=== PATIENT | female | born 1970 | race Caucasian/White ===

== ENCOUNTER 2018-01-05 10:56 | Emergency (ER) | payer BC ==
[2018-01-05 11:14] VITALS: BP 106/64
--- NOTE | 2018-01-05 12:30 | RAD ---
INDICATION: Right hand injury COMPARISON: None TECHNIQUE: AP, lateral, and oblique views were obtained. FINDINGS: The bony structures, joint spaces, and soft tissues are normal for age. IMPRESSION: NO ACUTE FRACTURE
--- NOTE | 2018-01-05 12:49 | UC ---
Hand/Wrist HPI - HPI Summary HPI Summary: pt had a large pool umbrella crank come back and strike her in the R hand. 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 c/o pain and swelling. - History Of Current Complaint Chief Complaint: UCUpperExtremity Stated Complaint: RIGHT HAND INJURY Time Seen by Provider: 01/05/18 12:23 Hx Obtained From: Patient, Family/Signs Cleaner Hx Last Menstrual Period: 12/30/17 Onset/Duration: Sudden Onset Pain Intensity: 3 Aggravating Factor(s): Movement Alleviating Factor(s): Nothing Associated Signs And Symptoms: Positive: Swelling, Bruising, Other - abrasion. - Allergies/Home Medications Allergies/Adverse Reactions: Allergies Allergy/AdvReac Type Severity Reaction Status Date / Time erythromycin base Allergy Nausea And Verified 01/05/18 11:08 Vomiting Home Medications: Home Medications NK [No Home Medications Reported] 01/05/18 [History Confirmed 01/05/18] PMH/Surg Hx/FS Hx/Imm Hx - Additional Past Medical History Additional PMH: melanoma L neck - Surgical History Surgical History: Yes Surgery Procedure, Year, and Place: [place] procedure - Family History Known Family History: Positive: None - Social History Occupation: Works From/At Home Lives: With Family Alcohol Use: Occasionally Substance Use Type: None Smoking Status (MU): Never Smoked Tobacco - Immunization History Vaccination Up to Date: Yes Review of Systems Constitutional: Negative Skin: Other - abrasion L hand Eyes: Negative ENT: Negative Respiratory: Negative Cardiovascular: Negative Gastrointestinal: Negative Genitourinary: Negative Motor: Negative Neurovascular: Negative Musculoskeletal: Other: - pain/swelling abck of left hand Neurological: Negative Psychological: Negative Is Patient Immunocompromised?: No All Other Systems Reviewed And Are Negative: Yes Physical Exam Triage Information Reviewed: Yes Appearance: Well-Appearing Vital Signs: Initial Vital Signs Temp 97.6 F 01/05/18 11:08 Pulse 61 01/05/18 11:08 Resp 18 01/05/18 11:08 BP 106/64 01/05/18 11:08 Pulse Ox 100 01/05/18 11:08 Vital Signs Reviewed: Yes Eyes: Positive: Conjunctiva Clear ENT: Positive: Pharynx normal, TMs normal, Other - scar L neck. Negative: Nasal congestion, Nasal drainage Neck: Positive: Supple, Nontender, No Lymphadenopathy Respiratory: Positive: Lungs clear, Normal breath sounds Cardiovascular: Positive: RRR, No Murmur Abdomen Description: Positive: Nontender, No Organomegaly, Soft Bowel Sounds: Positive: Present Musculoskeletal: Positive: Other: - LUE: Shoulder, elbow, forearm and wrist are atraumatic. Dorsal hand has mild swelling and bruising along with tenderness to palpation. There is also a very superficial abrasion to the dorsal hand. Fingers have full sensorivascular and motor function. Diagnostics - Laboratory Diagnostic Studies Completed/Ordered: IMPRESSION: NO ACUTE FRACTURE - Radiology No standard instances Radiology Interpretation Completed By: Radiologist - no fx Hand/Wrist Course/Dx - Course Course Of Treatment: No fracture or dislocation on x-ray. - Differential Dx/Diagnosis Provider Diagnoses: Contusion left dorsal hand. Superficial abrasion left dorsal hand. Discharge - Sign-Out/Discharge Documenting (check all that apply): Patient Departure - Discharge Plan Condition: Stable Disposition: HOME Patient Education Materials: Contusion in Adults (ED), Abrasion (ED) Referrals: Jadyn Stone MD [Primary Care Provider] - If Needed - Billing Disposition and Condition Condition: STABLE Disposition: Home
== END 2018-01-05 13:04 | disposition home or self-care (01) ==
LOC: UCCORT 10:56
DX: S60.512A Abrasion of left hand, initial encounter (principal); W22.8XXA Striking against or struck by other objects, initial encounter; Y93.89 Activity, other specified; Y92.9 Unspecified place or not applicable; Z88.1 Allergy status to other antibiotic agents
CPT/HCPCS: 99201; G0463